=== PATIENT | female | born 1960 | race Caucasian/White ===

== ENCOUNTER → 2020-03-25 | Outpatient (CLI) | payer BC | END | disposition home or self-care (01) | LOC: RAH 10:58 | PROVIDERS: ATTEND Internal Medicine Gastroenterology | DX: K30 Functional dyspepsia (principal); R68.81 Early satiety; R10.9 Unspecified abdominal pain; R11.0 Nausea; R14.0 Abdominal distension (gaseous) | CPT/HCPCS: 78264; A9541 ==

== ENCOUNTER → 2025-02-06 | Outpatient (CLI) | payer OTHER | END | disposition home or self-care (01) | LOC: RAH 14:00 | PROVIDERS: ATTEND Internal Medicine Cardiovascular Disease | DX: Z13.6 Encounter for screening for cardiovascular disorders (principal) | CPT/HCPCS: 75571 ==